=== PATIENT | female | born 1955 | race Caucasian/White ===

== ENCOUNTER 2024-04-28 13:22 | Outpatient (CLI) | payer OTHER, MEDICAID ==
[2024-04-28 14:27] LABS: #Basophils 0.07 10x3/uL (0.0-0.2); #Eosinphils 0.23 10x3/uL (0.0-0.5); #Monocytes 0.69 10x3/uL (0.0-1.1); #Neutrophils 6.11 10x3/uL (1.5-8.4); %Basophils 0.7 % (0.0-2.0); %Eosinophils 2.3 % (0.0-6.0); %Monocytes 6.9 % (0.0-10.0); %Neutrophils 60.9 % (40.0-75.0); Hematocrit 43.8 % (34.9-44.5); Hemoglobin 14.4 g/dL (12.0-15.5); Mean Corpuscular HGB CONC 32.9 g/dL (32.0-36.0); Mean Corpuscular Hemoglobin 29.4 pg (27.0-33.0); Mean Corpuscular Volume 89.4 fL (81.6-98.3); Mean Platelet Volume 9.3 fL (7.4-10.4); Platelet Count 330 10x3/uL (150-450); RBC Distribution Width 13.2 % (11.5-14.5)
[2024-04-28 14:45] LABS: Anion Gap 10 mmol/L (10-20); BUN (Urea Nitrogen) 9 mg/dL (9.8-20.1); Calc. Creatinine Clearance 0 mL/min (70-130); Calcium 9.6 mg/dL (7.8-10.44); Carbon Dioxide 26 mmol/L (23-31); Chloride 100 mmol/L (98-107); Estimated GFR 81; Glucose 100 mg/dL (83-110); Potassium 4.1 mmol/L (3.5-5.1); Sodium 132 mmol/L (136-145)
== END 2024-04-28 13:23 | disposition home or self-care (01) ==
LOC: CSHLAB 13:22
PROVIDERS: ATTEND Surgery
DX: Z01.818 Encounter for other preprocedural examination (principal); K43.9 Ventral hernia without obstruction or gangrene; K40.90 Unilateral inguinal hernia, without obstruction or gangrene, not specified as recurrent
CPT/HCPCS: 80048; 85025; 93005; 93010